=== PATIENT | male | born 1965 | race Caucasian/White ===

== ENCOUNTER 2020-03-12 16:03 | Emergency (ER) | payer BC, OTHER ==
[2020-03-12] MEDS ORDERED: Diphtheria,Pertussis(Acell),Tetanus Vaccine 0.5 ML Syringe IM ONE (17:32)
--- NOTE | 2020-03-12 19:12 | EDM.PDOC ---
ED HPI GENERAL MEDICAL PROBLEM - General Chief Complaint: Laceration Stated Complaint: L FINGER LAC Time Seen by Provider: 03/12/20 16:08 Source of Information: Reports: Patient, RN Notes Reviewed History Limitations: Reports: No Limitations - History of Present Illness INITIAL COMMENTS - FREE TEXT/NARRATIVE: Patient is a 54-year-old male presenting to the emergency department with complaints of a laceration to the MCP joint of second finger on his left hand. States he was cutting insulation with a utility knife and it slipped causing a laceration. He did have quite a bit of bleeding as he is on aspirin. He is not sure when his last tetanus vaccination was. - Related Data Allergies Allergy/AdvReac Type Severity Reaction Status Date / Time cat dander Allergy Cannot Verified 03/12/20 16:23 Remember Home Meds: Home Meds Aspirin [Halfprin] 81 mg PO DAILY 03/12/20 [History] Metoprolol Succinate [Toprol Xl] 100 mg PO DAILY 03/12/20 [History] hydroCHLOROthiazide [Hydrochlorothiazide] 25 mg PO DAILY 03/12/20 [History] lisinopriL [Lisinopril] 20 mg PO DAILY 03/12/20 [History] Past Medical History Cardiovascular History: Reports: Hypertension, Other (See Below) Other Cardiovascular History: palpitations - Past Surgical History Cardiovascular Surgical History: Reports: Other (See Below) Other Cardiovascular Surgeries/Procedures: angiogram Social & Family History - Tobacco Use Tobacco Use Status *Q: Never Tobacco User Second Hand Smoke Exposure: No - Caffeine Use Caffeine Use: Reports: None - Recreational Drug Use Recreational Drug Use: No ED ROS GENERAL - Review of Systems Review Of Systems: Comprehensive ROS is negative, except as noted in HPI. ED EXAM, SKIN/RASH Exam: See Below Exam Limited By: No Limitations General Appearance: Alert, WD/WN, No Apparent Distress Respiratory/Chest: No Respiratory Distress, Lungs Clear, Normal Breath Sounds, No Accessory Muscle Use, Chest Non-Tender Cardiovascular: Normal Peripheral Pulses, Regular Rate, Rhythm, No Edema, No Gallop, No JVD, No Murmur, No Rub Skin: Other (2 cm U-shaped superficial laceration to the MCP joint of the second digit of the left hand. No active bleeding. Wound is nongaping with hand in flexion or extension.) ED SKIN PROCEDURES - Laceration/Wound Repair Left ventral second MCP joint Appearance: Superficial Distal NVT: No Tendon Injury Skin Prep: Providone-Iodine (Betadine), Saline Exploration/Debridement/Repair: Wound Explored, In a Bloodless Field, No Foreign Material Found Closed with: Wound Adhesive Lac/Wound length In cm: 2 Sterile Dressing Applied: Nurse Tetanus Status Addressed: Yes Complications: No Course - Vital Signs Last Recorded V/S: Last Vital Signs Temp 97.4 F 03/12/20 16:19 Pulse 74 03/12/20 16:19 Resp 16 03/12/20 16:19 BP 102/62 03/12/20 16:19 Pulse Ox 96 03/12/20 16:19 - Orders/Labs/Meds Orders: Active Orders 24 hr Category Date Time Status Vaccines to be Administered [RC] PER UNIT ROUTINE Care 03/12/20 17:32 Active Meds: Medications Discontinued Medications Generic Name Dose Route Start Last Admin Trade Name Freq PRN Reason Stop Dose Admin Diphtheria/Tetanus/Acell Pertussis 0.5 ml 03/12/20 17:32 03/12/20 17:52 Boostrix IM 03/12/20 17:33 0.5 ml .ONCE ONE Administration Departure - Departure Time of Disposition: 19:11 Disposition: Home, Self-Care 01 Condition: Good Clinical Impression: Laceration - Discharge Information *PRESCRIPTION DRUG MONITORING PROGRAM REVIEWED*: No *COPY OF PRESCRIPTION DRUG MONITORING REPORT IN PATIENT ERON: No Instructions: Laceration Care, Adult, [id number] Referrals: PCP,Not In Area [Primary Care Provider] - Additional Instructions: You were seen in the emergency department today for a 2 cm laceration to your left knuckle. The wound was cleansed and found to be fairly superficial and nongaping, therefore closure with glue was appropriate. Keep the area clean and dry. The glue will gradually begin to peel off on its own over the course of t he next few days. If there is any chance that the wound could become contaminated, you should cover the area, otherwise it may be left open to air. Watch for signs of infection including increased redness, swelling, purulent drainage. If these should occur, he should be evaluated either in the clinic or in the emergency department for antibiotics. Return to ER as needed. Sepsis Event Note (ED) - Evaluation Sepsis Screening Result: No Definite Risk - Focused Exam Vital Signs: Vital Signs Temp Pulse Resp BP Pulse Ox 03/12/20 16:19 97.4 F 74 16 102/62 96 - My Orders Last 24 Hours: My Active Orders 03/12/20 17:32 Vaccines to be Administered [RC] PER UNIT ROUTINE - Assessment/Plan Last 24 Hours: My Active Orders 03/12/20 17:32 Vaccines to be Administered [RC] PER UNIT ROUTINE
== END 2020-03-12 19:22 | disposition home or self-care (01) ==
LOC: JD.ED 16:03
DX: S61.412A Laceration without foreign body of left hand, initial encounter (principal); I10 Essential (primary) hypertension; Z23 Encounter for immunization; Z91.048 Other nonmedicinal substance allergy status; Z79.899 Other long term (current) drug therapy; Z79.82 Long term (current) use of aspirin; W26.0XXA Contact with knife, initial encounter
CPT/HCPCS: 12001; 90471; 90715; 99282; 99282-25